=== PATIENT | male | born 1970 | race Caucasian/White ===

== ENCOUNTER 2019-04-01 15:52 | Emergency (ER) | payer OTHER ==
[~2019-04-01] VITALS: Ht 170.2 cm; Wt 75.0 kg
[2019-04-01] MEDS ORDERED: ATOR40TA28 PO (16:05)
[2019-04-01] MEDS ORDERED: LOSA25TA71 PO (16:05)
[2019-04-01] MEDS ORDERED: TERA1CAP7 PO (16:05)
[2019-04-01] MEDS ORDERED: ASPI-1227 PO (16:05)
[2019-04-01 18:28] VITALS: BP 114/69
== END 2019-04-01 18:33 | disposition home or self-care (01) ==
LOC: EMS 15:56
DX: K64.4 Residual hemorrhoidal skin tags (principal); E78.00 Pure hypercholesterolemia, unspecified; I10 Essential (primary) hypertension; Z79.899 Other long term (current) drug therapy; Z79.82 Long term (current) use of aspirin

== ENCOUNTER 2021-07-26 08:48 | Emergency (ER) | payer OTHER ==
[~2021-07-26] VITALS: Ht 170.2 cm; Wt 75.0 kg
[~2021-07-26 08:48] MED LIST: ASPI-1227 PO; ATOR40TA28 PO; LOSA-381 PO; TERA1CAP53 PO
[2021-07-26 08:54] VITALS: BP 151/94
== END 2021-07-26 13:37 | disposition left against medical advice (07) ==
LOC: EMS 08:48
DX: Z53.21 Procedure and treatment not carried out due to patient leaving prior to being seen by health care provider (principal)